=== PATIENT | male | born 1975 ===

== ENCOUNTER 2016-08-10 17:24 | Emergency (ER) | payer MEDICARE, MEDICAID ==
[2016-08-10 18:33] VITALS: BP 138/61
[2016-08-10] MEDS ORDERED: Lidocaine 2% W/EPI 1:100,000* 20 ML MDV INJ ONE (18:43)
--- NOTE | 2016-08-10 18:43 | UC ---
Skin Complaint HPI - HPI Summary HPI Summary: BOIL RIGHT UPPER THIGH X 4 DAYS + PAIN , REDNESS, SWELLING, NO FEVER, NO CHILLS, NO DISCHARGE - History of Current Complaint Chief Complaint: UCSkin Time Seen by Provider: 08/10/16 18:32 Stated Complaint: CYST/INFECTION RT LEG Hx Obtained From: Patient Onset/Duration: Gradual Onset, Lasting Days - 4, Still Present Timing: Constant Onset Severity: Moderate Current Severity: Moderate Location: Discrete - RIGHT UPPER THIGH Character: Swelling, Pain, Redness, Raised, Painful Aggravating: Touch Alleviating: Nothing Associated Signs & Symptoms: Positive: Tenderness. Negative: Nausea, Vomiting, Numbness, Thirst, Diaphoresis, Weakness, Pallor, Shivering, Difficulty Breathing , Fever, Chills, Cough, Wheezing, Chest Pain, Hoarseness, Throat Tightening, Rash, Drainage - Allergy/Home Medications Allergies/Adverse Reactions: Allergies Allergy/AdvReac Type Severity Reaction Status Date / Time No Known Allergies Allergy Verified 08/10/16 18:33 Review of Systems Constitutional: Negative Skin: Negative Eyes: Negative ENT: Negative Respiratory: Negative Cardiovascular: Negative Gastrointestinal: Negative Genitourinary: Negative Motor: Negative Neurovascular: Negative Musculoskeletal: Negative Neurological: Negative Psychological: Negative All Other Systems Reviewed And Are Negative: Yes PMH/Surg Hx/FS Hx/Imm Hx - Additional Past Medical History Additional PMH: FREQUENT ABSCESS - Surgical History Surgical History: Yes Surgery Procedure, Year, and Place: lower back 2010 - Family History Known Family History: Negative: Diabetes - Social History Alcohol Use: Rare Substance Use Type: Cocaine, Marijuana Substance Use Comment - Amount & Last Used: "occasional" Smoking Status (MU): Heavy Every Day Tobacco Smoker Amount Used/How Often: 1/2ppd Physical Exam Triage Information Reviewed: Yes Appearance: Well-Appearing, No Pain Distress, Well-Nourished Vital Signs: Initial Vital Signs Temp 98.3 F 08/10/16 18:27 Pulse 110 08/10/16 18:27 Resp 20 08/10/16 18:27 BP 138/61 08/10/16 18:27 Pulse Ox 98 08/10/16 18:27 Vital Signs Reviewed: Yes Eyes: Positive: Conjunctiva Clear ENT: Positive: Normal ENT inspection, Hearing grossly normal, Pharynx normal Neck exam: Normal Neck: Positive: Supple, Nontender, No Lymphadenopathy Respiratory: Positive: Chest non-tender, Lungs clear, Normal breath sounds, No respiratory distress Cardiovascular: Positive: RRR, No Murmur, Pulses Normal Skin: Positive: Other - ABSCESS RIGHT UPPER THIGH, + TENDER , ERYTHEMA, AND + SWELLING Course/Dx - Diagnoses Provider Diagnoses: ABSCESS RIGHT THIGH Procedures - Incision and Drainage Site: ABSCESS RIGHT UPPER THIGH Anesthesia: Local, Lidocaine - 2 % WITH EPI Instrument(s): Scalpel - #11, Needle - 25 G Discharge - Discharge Plan Condition: Stable Disposition: HOME Prescriptions: Sulfamethox/Trimethoprim DS* [Bactrim DS 800/160 TAB*] 1 tab PO BID #20 tab
== END 2016-08-10 19:16 | disposition home or self-care (01) ==
LOC: UCCORT 17:24
DX: L02.415 Cutaneous abscess of right lower limb (principal); F17.210 Nicotine dependence, cigarettes, uncomplicated
CPT/HCPCS: 10060; 87070; 87076; 87205; 87640; 87641; 99202; G0463

== ENCOUNTER 2019-07-02 12:29 | Emergency (ER) | payer MEDICARE, MEDICAID ==
[2019-07-02 13:00] VITALS: BP 127/87
--- NOTE | 2019-07-02 13:11 | UC ---
Ear Complaint HPI - HPI Summary HPI Summary: Pt presents with c/o bilateral ear pain. Pt states he felt ears were "clogged" and had been using a Qtip in both ears. Pt states that he woke "a few days ago " with feeling that something was coming out of right ear and "stuck finger in ear" and found blood dried and "wet" blood. Pt denies URI like symptoms, injury to ear or risk for extreme pressure changes. - History of Current Complaint Stated Complaint: EAR COMPLAINT Time Seen by Provider: 07/02/19 12:43 Hx Obtained From: Patient Onset/Duration: Sudden Onset, Lasting Days Severity Initially: Mild Severity Currently: Moderate Pain Intensity: 3 Aggravating Factors: Nothing Alleviating Factors: Nothing Associated Signs/Symptoms: Positive: Hearing Loss, Trauma to Ear - used Qtips - Allergies/Home Medications Allergies/Adverse Reactions: Allergies Allergy/AdvReac Type Severity Reaction Status Date / Time No Known Allergies Allergy Verified 07/02/19 13:00 Home Medications: Home Medications Amoxicillin PO (*) [Amoxicillin 500 MG CAP*] 500 mg PO Q12H #20 cap 07/02/19 [Rx ] PMH/Surg Hx/FS Hx/Imm Hx Previously Healthy: Yes - Surgical History Surgical History: Yes Surgery Procedure, Year, and Place: lower back 2010 - Family History Known Family History: Negative: Diabetes - Social History Occupation: Employed Full-time Lives: With Family Alcohol Use: None Substance Use Type: Marijuana Substance Use Comment - Amount & Last Used: "occasional" Smoking Status (MU): Heavy Every Day Tobacco Smoker Amount Used/How Often: 1/2ppd Length of Time of Smoking/Using Tobacco: 25 yr Have You Smoked in the Last Year: Yes Review of Systems All Other Systems Reviewed And Are Negative: Yes Constitutional: Positive: Negative Skin: Positive: Negative Eyes: Positive: Negative ENT: Positive: Ear Ache - bilateral Respiratory: Positive: Negative Cardiovascular: Positive: Negative Gastrointestinal: Positive: Negative Genitourinary: Positive: Negative Motor: Positive: Negative Neurovascular: Positive: Negative Musculoskeletal: Positive: Negative Neurological/Mental Status: Positive: Headache - " a little bit" Psychological: Positive: Negative Is Patient Immunocompromised?: No Physical Exam Triage Information Reviewed: Yes Appearance: Other: - anxious Vital Signs: Initial Vital Signs Temp 96.6 F 07/02/19 12:55 Pulse 101 07/02/19 12:55 Resp 18 07/02/19 12:55 BP 127/87 07/02/19 12:55 Pulse Ox 99 07/02/19 12:55 Vital Signs Reviewed: Yes Eye Exam: Normal ENT: Positive: TM bulging, Other - right TM, bulging, with dried small hematoma in right TM, Left TM, ruptured and slightly bulgin around ruptured area Ear Complaint Course/Dx - Differential Dx/Diagnosis Differential Diagnosis/HQI/PQRI: Cerumen Impaction, Otitis Media, Perforated TM Provider Diagnosis: Perforated tympanic membrane of both ears on examination Discharge ED - Sign-Out/Discharge Documenting (check all that apply): Patient Departure All imaging exams completed and their final reports reviewed: No Studies - Discharge Plan Condition: Stable Disposition: HOME Prescriptions: Amoxicillin PO (*) [Amoxicillin 500 MG CAP*] 500 mg PO Q12H #20 cap Patient Education Materials: Ruptured Eardrum (ED) Referrals: Dewayne Fuller MD [Primary Care Provider] - If Needed - Billing Disposition and Condition Condition: STABLE Disposition: Home
== END 2019-07-02 13:17 | disposition home or self-care (01) ==
LOC: UCCORT 12:29
DX: S09.22XA Traumatic rupture of left ear drum, initial encounter (principal); S09.21XA Traumatic rupture of right ear drum, initial encounter; X58.XXXA Exposure to other specified factors, initial encounter; Y93.E8 Activity, other personal hygiene; Y92.9 Unspecified place or not applicable; F17.200 Nicotine dependence, unspecified, uncomplicated
CPT/HCPCS: 99212; G0463